=== PATIENT | female | born 1985 | race Two or more races ===

== ENCOUNTER 2016-11-27 22:02 | Emergency (ER) | payer SELFPAY ==
[~2016-11-27] VITALS: Ht 165.1 cm; Wt 59.0 kg
[2016-11-28 00:15] VITALS: BP 126/74
== END 2016-11-28 01:10 | disposition left against medical advice (07) ==
LOC: ER 22:02
DX: N93.8 Other specified abnormal uterine and vaginal bleeding (principal); Z53.21 Procedure and treatment not carried out due to patient leaving prior to being seen by health care provider
CPT/HCPCS: 81025